=== PATIENT | male | born 1980 | race Two or more races ===

== ENCOUNTER 2020-07-13 20:26 | Emergency (ER) | payer OTHER ==
[~2020-07-13] VITALS: Ht 172.7 cm; Wt 81.0 kg
[2020-07-13 21:00] VITALS: BP 115/93
[2020-07-13] MEDS ORDERED: PENI500T PO (22:23)
[2020-07-13] MEDS ORDERED: HYDR-3164 PO (22:23)
--- NOTE | 2020-07-13 22:23 | PHYS DOC ---
Past Medical History Past Medical History: No Pertinent History Past Surgical History: No Surgical History Smoking Status: Current Every Day Smoker Alcohol Use: Occasionally General Adult EDM: Chief Complaint: DENTAL PROBLEM HPI: HPI: Patient is a 39 year old male who presents with a one-week history of 10 out of 10 left maxillary molar pain. Patient denies any trauma but states he has 10 out of 10 pain when ingesting cold substances. Pain radiates to the ear and to the head. Patient denies any fever. Review of Systems: Review of Systems: Constitutional: Denies fever or chills. [] Eyes: Denies change in visual acuity. [] HENT: Complains of dental pain Respiratory: Denies cough or shortness of breath. [] Cardiovascular: Denies chest pain or edema. [] GI: Denies abdominal pain, nausea, vomiting, bloody stools or diarrhea. [] : Denies dysuria. [] Musculoskeletal: Denies back pain or joint pain. [] Integument: Denies rash. [] Neurologic: Has a mild headache but no focal weakness or sensory changes. [] Endocrine: Denies polyuria or polydipsia. [] Lymphatic: Denies swollen glands. [] Psychiatric: Denies depression or anxiety. [] Heart Score: Risk Factors: Risk Factors: DM, Current or recent (<one month) smoker, HTN, HLP, family hist ory of CAD, obesity. Risk Scores: Score 0 - 3: 2.5% MACE over next 6 weeks - Discharge Home Score 4 - 6: 20.3% MACE over next 6 weeks - Admit for Clinical Observation Score 7 - 10: 72.7% MACE over next 6 weeks - Early Invasive Strategies Current Medications: Current Medications Medications (Trade) Dose Ordered Sig/[facility] Start Time Stop Time Status Last Admin Dose Admin Acetaminophen/ Hydrocodone Bitart (Lortab 7.5/325) 1 tab 1X ONCE 07/13/20 22:30 07/13/20 22:31 Penicillin V Potassium (Veetid) 500 mg 1X ONCE 07/13/20 22:30 07/13/20 22:31 Allergies: Allergies: Allergies Coded Allergies Type Severity Reaction Last Updated Verified No Known Drug Allergies 07/13/20 No Physical Exam: PE: Constitutional: Well developed, well nourished, no acute distress, non-toxic appearance. [] HENT: Normocephalic, atraumatic, bilateral external ears normal, no trismus, no submandibular abscess, left maxillary molar with cavities and mild gingival swelling. No Kishan angina nose normal. [] Eyes: PERRLA, EOMI, conjunctiva normal, no discharge. [] Neck: Normal range of motion, no tenderness, supple, no stridor. [] Cardiovascular:Heart rate regular rhythm, peripheral pulses intact cap refill is brisk Lungs & Thorax: Bilateral breath sounds clear, no respiratory distress Abdomen: Soft, no tenderness, no masses, no pulsatile masses. [] Skin: Warm, dry, no erythema, no rash. [] Back: No tenderness, no CVA tenderness. [] Extremities: No tenderness, no cyanosis, no clubbing, ROM intact, no edema. [] Neurologic: Alert and oriented X 3, normal motor function, normal sensory function, no focal deficits noted. [] Psychologic: Affect normal, judgement normal, mood normal. [] Current Patient Data: Vital Signs: Vital Signs Date Time Temp Pulse Resp B/P (MAP) Pulse Ox O2 Delivery O2 Flow Rate FiO2 07/13/20 21:00 97.7 70 18 115/93 (100) 98 Room Air 97.7 EKG: EKG: [] Radiology/Procedures: Radiology/Procedures: [] Course & Med Decision Making: Course & Med Decision Making Pertinent Labs and Imaging studies reviewed. (See chart for details) [] 39-year-old male presents with dental pain. Patient has some swelling but no drainable abscess. Patient's clinically stable and has appoint with a dentist tomorrow. Patient was last on antibiotics and pain medicine. Return precautions given. Gerry Disclaimer: Gerry Disclaimer: This electronic medical record was generated, in whole or in part, using a voice recognition dictation system. Departure Departure Impression: Primary Impression: Dental caries Disposition: 01 DC HOME SELF CARE/HOMELESS Condition: STABLE Referrals: NO PCP (PCP) [facility] [place], [place] [phone] (kids only) [facility] [address], [place] [phone] (kids onl Patient Instructions: Dental Abscess, Dental Caries Additional Instructions: EMERGENCY DEPARTMENT GENERAL DISCHARGE INSTRUCTIONS THANK YOU for coming to [facility] Emergency Department (ED) today and trusting us with your care. We trust that you had a positive experience in our Emergency Department. If you wish to speak to the department Management you can contact the department of natural resources officer at . YOUR FOLLOW UP INSTRUCTIONS ARE FOLLOWS: Do you have a private doctor? If you do not have a private doctor, please ask for a resource list of physicians or clinics that may be able to assist you with follow up care. The Emergency Physician has interpreted your x-rays. The X-ray specialist will also review them. If there is a change in the findings you will be notified in 48 hours when at all possible. A lab test or lab culture may have been done, your results will be reviewed and you will be notified if you need a change in treatment. ADDITIONAL INSTRUCTIONS AND INFORMATION Your care today has been supervised by a physician who is specially trained in emergency care. Many problems require more than one evaluation for a complete diagnosis and treatment. We recommend that you schedule your follow up appointment as recommended to ensure complete treatment of your illness or injury. If you are unable to obtain follow up care and continue to have a problem, or if your condition worsens we recommend that you return to the ED. We are not able to safely determine your condition over the phone nor are we able to give sound medical advice over the phone. For these safety reasons, if you call for medical advice we will ask you to come to the ED for further evaluation If you have any questions regarding these discharge instructions please call the ED at . SAFETY INFORMATION In the interest of safety, wellness, and injury prevention; we encourage you to wear your seatbelt, if you smoke; quit smoking, and we encourage your family to use protective helmet for bicycling and other sporting events that present an increased risk for head injury. IF YOUR SYMPTOMS WORSEN OR NEW SYMPTOMS DEVELOP, OR YOU HAVE CONCERNS ABOUT YOUR CONDITION; OR IF YOUR CONDITION WORSENS WHILE YOU ARE WAITING FOR YOUR FOLLOW UP APPOINTMENT; EITHER CONTACT YOUR PRIMARY CARE DOCTOR, THE PHYSICIAN WHOSE NAME AND NUMBER YOU WERE GIVEN, OR RETURN TO THE ED IMMEDIATELY. Scripts Penicillin V Potassium (PENICILLIN V POTASSIUM) 500 Mg Tablet 1 TAB PO QID, #40 TAB Prov: DAQUAN BURNS MD 07/13/20 Hydrocodone/Apap 5-325 (NORCO 5-325 TABLET) 1 Each Tablet 1-2 EACH PO PRN Q6HRS PRN for PAIN, #15 as needed for pain Prov: DAQUAN BURNS MD 07/13/20 DAQUAN BURNS MD Jul 13, 2020 22:23
[2020-07-13] MEDS ORDERED: HYDROcodone/APAP 7.5/325MG 1 TAB TABLET PO ONE (22:30)
[2020-07-13] MEDS ORDERED: PENICILLIN V K 250 MG TABLET. PO ONE (22:30)
== END 2020-07-13 22:45 | disposition home or self-care (01) ==
LOC: ER 20:26
DX: K02.9 Dental caries, unspecified (principal); K08.89 Other specified disorders of teeth and supporting structures; R51.9 Headache, unspecified; R60.0 Localized edema; F17.200 Nicotine dependence, unspecified, uncomplicated
CPT/HCPCS: 99283

== ENCOUNTER 2022-02-03 22:48 | Inpatient (IN) | payer OTHER ==
[~2022-02-03] VITALS: Ht 172.7 cm; Wt 84.8 kg
[~2022-02-03 22:48] MED LIST: HYDR-3164 PO; PENI500T PO
[2022-02-03 23:12] LABS: BASO # 0.1 x10^3/uL (0.0-0.2); BASO % 1 % (0-3); EOS # 0.3 x10^3/uL (0.0-0.7); EOS % 3 % (0-3); HEMOGLOBIN 14.3 g/dL (13.0-17.5); LYMPH % 40 % (24-48); MEAN CORPUSCULAR HEMOGLOBIN 28 pg (25-35); MEAN CORPUSCULAR HGB CONC 33 g/dL (31-37); MEAN CORPUSCULAR VOLUME 84 fL (79-100); MONO # 0.7 x10^3/uL (0.0-1.1); MONO % 5 % (0-9); NEUT # 6.5 x10^3/uL (1.8-7.7); NEUT % 52 % (31-73); PLATELET COUNT 302 x10^3/uL (140-400); RED BLOOD COUNT 5.12 x10^6/uL (4.30-5.70); RED CELL DISTRIBUTION WIDTH 19.2 % (11.5-14.5); WHITE BLOOD COUNT 12.6 x10^3/uL (4.0-11.0)
[2022-02-03 23:22] LABS: CALCIUM 8.3 mg/dL (8.5-10.1); GFR 81.6; POTASSIUM 3.5 mmol/L (3.5-5.1)
[2022-02-03 23:28] LABS: ALBUMIN 3.3 g/dL (3.4-5.0); ALBUMIN/GLOBULIN RATIO 0.7 (1.0-1.7); MAGNESIUM 2.2 mg/dL (1.8-2.4); TOTAL BILIRUBIN 0.3 mg/dL (0.2-1.0); TOTAL PROTEIN 8.2 g/dL (6.4-8.2)
[2022-02-03] MEDS ORDERED: MUPIROCIN 2 % OINTMENT 22GM TUBE. TP ONE (23:30)
[2022-02-03] MEDS ORDERED: MULTIVIT INFUSN,ADULT 4,VIT K 10 ML, THIAMINE INJ 100 MG, FOLIC ACID INJ 1 MG in IV NOR... IV ONE (23:30)
[2022-02-03] MEDS ORDERED: KETOROLAC 15 MG/ML VIAL. IVP ONE (23:30)
[2022-02-03] MEDS ORDERED: CONTRAST GIVEN. MC PRN (23:30)
[2022-02-03] MEDS ORDERED: LIDOCAINE 2%/EPI 1:100,000 20 ML VIAL. INJ ONE (23:30)
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
[2022-02-03] MEDS ORDERED: DIPHTH,PERTUSS(ACELL),TET TOX 0.5 ML DISP.SYRIN. VAX IM ONE (23:45)
[2022-02-03] MEDS ORDERED: IOHEXOL 300 MG/ML 100ML VIAL. IV ONE (23:45)
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
[2022-02-04] VITALS (7 sets, daily range): BP systolic 136–157; BP diastolic 73–90
[2022-02-04] MEDS ORDERED: fentaNYL PF VIAL 100 MCG/2 ML VIAL IV ONE
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
[2022-02-04] MEDS: fentaNYL PF VIAL 100 MCG/2 ML VIAL IVP PRN ×5 (00:22→19:35)
[2022-02-04] MEDS ORDERED: IV NORMAL SALINE 1000ML BAG 1,000 ML IV SCH (00:30)
[2022-02-04] MEDS: HYDROmorphone 2 MG/ML INJ. IVP PRN ×2 (01:35→09:51)
--- NOTE | 2022-02-04 02:12 | NUR ---
Admit from ER to [facility] room 667 via [facility]. A/O x 4. Anxious but cooperative. Tearful. Transferred self from [facility] to bathroom and then to bed with standby assist. C/O left side chest/back pain. Rates pain 10+/10. Does not want to take pain medications. O2 sat 96% RA. Patient does not wish to wear oxygen at this time. Reports the oxygen tubing causes him to have anxiety. Instructing patient to take slow deep breaths often. Does not take home medications and does not have a preferred pharmacy. Patient list motherRoz, , as customer contact sales associate. Orientated to room and call light. Reviewed POC to include Deep Breath and to call for assist while out of bed. Verbalized understanding. Dangling at bedside eating box lunch. Call light at hand.
--- NOTE | 2022-02-04 03:13 | NUR ---
Patient allowed pain meds be given as ordered. Sleeping in bed. Lying on right side with pillows behind his back. O2 4L NC in place. Call light at hand. Bed alarm on.
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
[2022-02-04] MEDS ORDERED: ZOLPIDEM 5 MG TABLET. PO PRN (13:00)
[2022-02-04] MEDS ORDERED: DOCUSATE SODIUM 100 MG CAPSULE. PO PRN (13:00)
[2022-02-04] MEDS ORDERED: oxyCODONE/APAP 5/325 1 TAB TABLET PO PRN (13:00)
[2022-02-04] MEDS ORDERED: ONDANSETRON PF 4 MG/2 ML VIAL. IVP PRN ×2 (13:00)
[2022-02-04] MEDS ORDERED: MAG HYDROX/ALUMINUM HYD/SIMETH 30 ML ORAL.SUSP PO PRN (13:00)
[2022-02-04] MEDS ORDERED: MAGNESIUM HYDROXIDE 2,400 MG/30 ML ORAL.SUSP. PO PRN (13:00)
[2022-02-04] MEDS ORDERED: CALCIUM CARBONATE 500 MG TAB.CHEW PO PRN (13:00)
[2022-02-04] MEDS: oxyCODONE/APAP 5/325 1 TAB TABLET PO PRN (13:06)
[2022-02-04] MEDS: HYDROcodone/APAP 5/325MG 1 TAB TABLET PO PRN ×2 (17:07→22:36)
[2022-02-05 02:26] VITALS: BP 158/65
[2022-02-05] MEDS: HYDROcodone/APAP 5/325MG 1 TAB TABLET PO PRN (04:09)
--- NOTE | 2022-02-05 05:18 | RAD ---
XR CHEST 1V Clinical Indication: Reason: Pneumothorax-INCREASED PAIN OF 4:30AM / Spl. Instructions: / History : Comparison: CT chest abdomen and pelvis of contrast, 2 days ago. Findings: The cardiomediastinal silhouette is normal. There are mild bibasilar airspace opacities, increased fr om prior study. A trace left pneumothorax was noted on prior CT. No pneumothorax is identified radiog raphically, not unexpected. No pleural effusion is appreciated. No acute bone abnormality. There is i nternal fixation hardware of the right clavicle. IMPRESSION: 1. There are mild bibasilar airspace opacities, increased from prior study. Opacities are probably a combination of atelectasis and pulmonary contusion. 2. No pneumothorax is seen radiographically. Electronically signed by: Chas Arevalo MD (02/05/2022 5:15 AM) [facility]
[2022-02-05 07:00] VITALS: BP 144/86
[2022-02-05] MEDS: oxyCODONE/APAP 5/325 1 TAB TABLET PO PRN ×2 (08:08→22:57)
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
[2022-02-05] MEDS: fentaNYL PF VIAL 100 MCG/2 ML VIAL IVP PRN ×2 (09:54→13:48)
[2022-02-05] MEDS: LIDOCAINE (700MG/PATCH) PATCH. TD SCH (10:06)
[2022-02-05 10:59] VITALS: BP 120/77
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
[2022-02-05] MEDS ORDERED: LIDO:MAALOX 1:1 20 ML SINGLE DOSE. SWSW ONE (13:45)
[2022-02-05] MEDS: IBUPROFEN 400 MG TABLET. PO PRN (13:47)
--- NOTE | 2022-02-05 14:39 | EKG ---
[facility] [address] [place] [address] Test Date: 2022-02-05 Test Time: 14:33:35 Pat Name: YUDITH DIAS Department: Room: [facility] Gender: M Call Center Manager: RAÚL : 1980 Requested By: DARRYL COREAS Order Number: [id number] Reading MD: John Haynes Measurements Intervals [place] Rate: 71 P: 38 CA: 168 QRS: 74 QRSD: 98 T: 11 QT: 360 QTc: 396 Interpretive Statements SINUS RHYTHM NORMAL ECG RI6.02 No previous ECG available for comparison Electronically Signed On 02-07-2022 17:15:55 CDT by John Haynes
[2022-02-05 15:00] VITALS: BP 134/85
--- NOTE | 2022-02-05 15:05 | RAD ---
EXAM: Chest, single view. HISTORY: Chest pain. Rib fractures. COMPARISON: 02/03/2022. FINDINGS: A frontal view of the chest is obtained. There is linear atelectasis along the right pleura l fissures. There is also bilateral basilar and lingular atelectasis. The recently demonstrated trace left pneumothorax is no not seen radiographically. There aren't displaced left fifth, sixth, seventh and eighth rib fractures. The heart is normal in size. There is internal fixation of a right clavicl e fracture. There are chronic appearing right rib fractures. IMPRESSION: 1. Bilateral mid and lower lung atelectasis. 2. Multiple left rib fractures, better characterized on the recent CT. 3. No convincing pneumothorax. Electronically signed by: Salome Downing MD (02/05/2022 3:03 PM) [id number]
--- NOTE | 2022-02-05 15:54 | NUR ---
SS following for discharge planning. SS reviewed pt chart and discussed with pt RN. Pt is from home with spouse and is currently on room air. Pulmonology following. SS will continue to follow for discharge planning.
[2022-02-05] MEDS: ACETAMINOPHEN 325 MG TABLET. PO PRN (16:29)
[2022-02-05 19:17] VITALS: BP 183/87
[2022-02-05] MEDS: oxyCODONE IR 5 MG TABLET PO PRN (19:26)
[2022-02-05 22:53] VITALS: BP 142/84
[2022-02-06 00:04] LABS: BARBITURATES NEG (NEG); BENZODIAZEPINES NEG (NEG); CANNABINOIDS NEG (NEG); COCAINE NEG (NEG); METHADONE NEG (NEG); OPIATES POS (NEG); PHENCYCLIDINE NEG (NEG)
[2022-02-06 00:05] LABS: BACTERIA,URINE FEW /HPF (0-FEW); RBC,URINE 0 /HPF (0-2)
[2022-02-06 00:07] LABS: AMPHETAMINE/METHAMPHETAMINE NEG (NEG)
[2022-02-06 03:17] VITALS: BP 146/86
[2022-02-06] MEDS: oxyCODONE/APAP 5/325 1 TAB TABLET PO PRN ×2 (03:29→08:19)
[2022-02-06 07:00] VITALS: BP 142/88
[2022-02-06] MEDS: LIDOCAINE (700MG/PATCH) PATCH. TD SCH (08:21)
[2022-02-06 11:00] VITALS: BP 135/82
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
--- NOTE | 2022-02-06 12:23 | RAD ---
EXAM: Chest, single view. HISTORY: Rib fractures. Pulmonary contusion. COMPARISON: 02/15/2022 FINDINGS: A frontal view of the chest is obtained. There is increased opacification of the left hemit horax possibly due to a small pleural effusion and diffuse lower lobe predominant interstitial infilt rate, atelectasis or contusion. There is no convincing pneumothorax. There are multiple left rib frac tures. The heart is normal in size. There is internal fixation of a healed right clavicle fracture. T here are prominent air-filled loops of bowel within the upper abdomen. IMPRESSION: 1. Increased opacification of the left hemithorax due to a possible small pleural effusion and diffus e lower lobe predominant interstitial infiltrate, atelectasis or contusion. There is associated decre ased left pneumothorax volume. No pneumothorax is seen. 2. Left rib fractures, better characterized on the recent comparison CT. Electronically signed by: Salome Downing MD (02/06/2022 11:39 AM) [id number]
[2022-02-06] MEDS ORDERED: IPRATRPIUM/ALBUTEROL 0.5/2.5MG 3 ML NEBU. NEB ONE (12:30)
--- NOTE | 2022-02-06 12:38 | NUR ---
SS following up with discharge planning. SS reviewed pt chart and discussed with pt RN. Pt is currently on room air. No PT needs. SS will continue to follow for discharge planning.
[2022-02-06] MEDS: oxyCODONE IR 5 MG TABLET PO PRN ×2 (13:39→22:32)
--- NOTE | 2022-02-06 14:08 | RAD ---
EXAM: Chest CT without intravenous contrast. HISTORY: Pleural effusion. Rib fractures. TECHNIQUE: Computed tomographic images of the chest were obtained without contrast. Multiplanar refor matting was performed. *One or more of the following individualized dose reduction techniques were utilized for this examina tion: 1. Automated exposure control. 2. Adjustment of the mA and/or kV according to patient size. 3. Use of iterative reconstruction technique. COMPARISON: CT dated 02/03/2022. FINDINGS: There is a trace left pleural effusion, possibly a hemothorax given the presence of multipl e displaced left rib fractures. There is partial left lower lobe and lingular consolidation with asso ciated air bronchograms. This is superimposed on lower lobe predominant atelectasis and suspected pul monary contusion. There is linear atelectasis involving the right upper and middle lobes along the minor pleural fissur e. There is also linear atelectasis within the right lung base. The heart is normal in size. The aorta is normal in caliber. There is no lymphadenopathy. There is a small hiatal hernia. There is no acute finding involving the upper abdomen. There are displaced posterior lateral left fifth, sixth, seventh and eighth rib fractures. There is i nternal fixation of a healed right clavicle fracture. There are healed right lateral rib fractures. N o vertebral body fracture is seen. There is multilevel endplate remodeling. IMPRESSION: 1. Trace right pleural effusion, possibly a hemothorax given the presence of multiple displaced left rib fractures. 2. Partial left lower lobe and lingular consolidation with associated air bronchograms superimposed o n lower lobe predominant atelectasis and suspected: contusion. There is also linear atelectasis withi n the right lung. 3. Displaced left fifth, sixth, seventh and eighth rib fractures. Electronically signed by: Salome Downing MD (02/06/2022 2:06 PM) [id number]
[2022-02-06] MEDS: HYDROmorphone 2 MG/ML INJ. IVP PRN (14:39)
[2022-02-06] MEDS ORDERED: levOFLOXacin PER PHARMACY. MC PRN (14:45)
[2022-02-06 15:00] VITALS: BP 146/86
[2022-02-06] MEDS ORDERED: fentaNYL PF VIAL 100 MCG/2 ML VIAL IVP PRN (16:00)
[2022-02-06] MEDS: IBUPROFEN 400 MG TABLET. PO PRN (16:23)
[2022-02-06 19:28] VITALS: BP 156/91
[2022-02-06] MEDS: HYDROcodone/APAP 5/325MG 1 TAB TABLET PO PRN (19:42)
[2022-02-06 23:27] VITALS: BP 155/91
[2022-02-07] MEDS: ACETAMINOPHEN 325 MG TABLET. PO PRN (00:35)
[2022-02-07 01:30] LABS: CALCIUM 8.8 mg/dL (8.5-10.1); CREATININE 0.9 mg/dL (0.7-1.3); GFR 92.1; POTASSIUM 4.4 mmol/L (3.5-5.1)
[2022-02-07 01:52] LABS: BASO # 0.1 x10^3/uL (0.0-0.2); BASO % 0 % (0-3); EOS % 0 % (0-3); HEMATOCRIT 39.7 % (39.0-53.0); HEMOGLOBIN 13.3 g/dL (13.0-17.5); LYMPH # 0.5 x10^3/uL (1.0-4.8); LYMPH % 3 % (24-48); MEAN CORPUSCULAR HEMOGLOBIN 28 pg (25-35); MEAN CORPUSCULAR HGB CONC 33 g/dL (31-37); MEAN CORPUSCULAR VOLUME 84 fL (79-100); MONO # 0.7 x10^3/uL (0.0-1.1); MONO % 5 % (0-9); NEUT # 14.2 x10^3/uL (1.8-7.7); NEUT % 92 % (31-73); PLATELET COUNT 212 x10^3/uL (140-400); RED BLOOD COUNT 4.72 x10^6/uL (4.30-5.70); RED CELL DISTRIBUTION WIDTH 19.1 % (11.5-14.5); WHITE BLOOD COUNT 15.5 x10^3/uL (4.0-11.0)
[2022-02-07 02:32] LABS: % BANDS 5 % (0-9); % LYMPHS 7 % (24-48); % MONOS 4 % (0-10); % SEGS 84 % (35-66); PLT ESTIMATE ADEQUATE (ADEQUATE)
[2022-02-07 03:55] VITALS: BP 148/84
[2022-02-07] MEDS: HYDROcodone/APAP 5/325MG 1 TAB TABLET PO PRN ×2 (05:04→09:26)
[2022-02-07 07:00] VITALS: BP 131/73
--- NOTE | 2022-02-07 07:19 | NUR ---
PT TRIGGERED SEPSIS SCREEN AT 0402. NOTIFIED SVITLANA ICU CHARGE NURSE. LABS ORDERED. SVITLANA STATED SHE WILL NOTIFY DR. KIRBY. WILL CONTINUE TO MONITOR.
[2022-02-07] MEDS: LIDOCAINE (700MG/PATCH) PATCH. TD SCH (08:51)
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
[2022-02-07 11:00] VITALS: BP 140/69
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
[2022-02-07] MEDS ORDERED: HYDR-2761 PO (11:12)
[2022-02-07] MEDS ORDERED: LEVO500T9 PO (11:12)
[2022-02-07 15:00] VITALS: BP 122/71
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
--- NOTE | 2022-02-07 16:15 | NUR ---
PATIENT ALERT AND VERBALLY RESPONSIVE, DISCHARGE INSTRUCTIONS GIVEN, QUESTIONS AND CONCERNS ANSWERED, PATIENT VERBALIZED UNDERSTANDING OF DISCHARGE INFORMATION INCLUDING TAKING ALL MEDICATIONS INSTRUCTED AND FOLLOWING UP WITH HIS PRIMARY PROVIDER IN 1-2 WEEKS. ALL PERSONAL BELONGINGS GATHERED BY THE PATIENT AND PLACED IN BAGS FOR DISCHARGE, SALINE LOCKS REMOVED FROM LEFT FOREARM AND RIGHT AC AREAS, BANDAGES APPLIED
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
== END 2022-02-07 16:39 | disposition home or self-care (01) | DRG 184 ==
LOC: ER 22:48 → EEVIPCON 23:37 → 6 SOUTH 23:37
PROVIDERS: ADMIT Student in an Organized Health Care Education/Training Program; ATTEND Student in an Organized Health Care Education/Training Program
DX: S22.43XA Multiple fractures of ribs, bilateral, initial encounter for closed fracture (principal); S27.0XXA Traumatic pneumothorax, initial encounter; J98.11 Atelectasis; S27.321A Contusion of lung, unilateral, initial encounter; F10.220 Alcohol dependence with intoxication, uncomplicated; F17.210 Nicotine dependence, cigarettes, uncomplicated; R09.02 Hypoxemia; V29.9XXA Motorcycle rider (driver) (passenger) injured in unspecified traffic accident, initial encounter; Y92.410 Unspecified street and highway as the place of occurrence of the external cause; S01.01XA Laceration without foreign body of scalp, initial encounter; Y93.89 Activity, other specified; Y99.8 Other external cause status
CPT/HCPCS: 12002; 36415; 70450; 71045; 71250; 71260; 72125; 74177; 80048; 80053; 80307; 81001; 83605; 83690; 83735; 84484; 85007; 85025; 87040; 90471; 90715; 93005; 94618; 94640; 96365; G0238; G0480; J1170; J1885; J3010; J3411; J3490; J7030; Q9967; 99291-25; G0378